=== PATIENT | male | born 1970 | race Hispanic/Latino ===

== ENCOUNTER 2018-05-09 09:28 | Emergency (ER) | payer OTHER ==
[~2018-05-09] VITALS: Ht 165.1 cm; Wt 86.2 kg
--- OUTSIDE RECORDS SUMMARY | 2018-05-09 09:32 | XMS REPORT ---
Author Author [facility] Address Unknown Phone Unavailable Care Team Providers Care Nnp Name Role Phone TREVON BELCHER Unavailable Unavailable Problems This patient has no known problems. Allergies, Adverse Reactions, Alerts This patient has no known allergies or adverse reactions. Medications This patient has no known medications. Results Test Description Test Time Test Comments Text Results Atomic Results Result Comments CREATINE KINASE (CK), TOTAL AND MB 2017-08-30 19:21:00 CREATINE KINASE TOTAL (BEAKER) (test wqku=693) 67 U/L 29-200 CREATINE KINASE-MB (BEAKER) (test vjib=407) 0.6 ng/mL 0.0-6.6 CREATINE KINASE-MB INDEX (BEAKER) (test maqf=811) 0.9 % CK-MB Reference Range:<6.7 Normal6.7-10.0 Borderline>10.0 Abnormal TROPONIN [id number] 19:21:00* Test Item Value Reference Range Comments TROPONIN I (BEAKER) (test vrzu=399) < ng/mL 0.00-0.03 Troponin I (TnI) levels must be interpreted in the context of the presenting sym ptoms and the clinical findings. Elevated TnI levels indicate myocardial damage, but are not specific for ischemic heart disease. Elevated TnI levels are seen in patients with other cardiac conditions (including myocarditis and congestive h eart failure), and slight TnI elevations occur in patients with other conditions , including sepsis, renal failure, acidosis, acute neurological disease, and per sistent tachyarrhythmia.[id number] 19:14:00* Test Item Value Reference Range Comments MAGNESIUM (BEAKER) (test vzfg=880) 2.3 mg/dL 1.6-2.6 Specimen slightly hemolyzed BASIC METABOLIC [id number] 19:14:00* Test Item Value Reference Range Comments SODIUM (BEAKER) (test dksm=178) 139 meq/L 136-145 POTASSIUM (BEAKER) (test hobs=726) 4.0 meq/L 3.5-5.1 Specimen slightly hemolyzed CHLORIDE (BEAKER) (test yabn=289) 107 meq/L 98-107 CO2 (BEAKER) (test qxwn=146) 25 meq/L 22-29 BLOOD UREA NITROGEN (BEAKER) (test gkpa=567) 15 mg/dL 7-21 CREATININE (BEAKER) (test ehdx=625) 0.80 mg/dL 0.57-1.25 Specimen slightly hemolyzed GLUCOSE RANDOM (BEAKER) (test awgz=685) 132 mg/dL 70-105 CALCIUM (BEAKER) (test grzi=478) 9.4 mg/dL 8.4-10.2 EGFR (BEAKER) (test sypc=3970) 103 mL/min/1.73 sq m ESTIMATED GFR IS NOT ACCURATE CREATININE CLEARANCE IN PREDICTING GLOMERULAR FILTRATION RATE. ESTIMATED GFR IS NOT APPLICABLE FOR DIALYSIS PATIENTS. PT/[id number] 19:01:00* Test Item Value Reference Range Comments PROTIME (BEAKER) (test tfrr=361) 13.3 seconds 11.7-14.7 INR (BEAKER) (test ztcr=506) 1.0 <=5.9 PARTIAL THROMBOPLASTIN TIME (BEAKER) (test whre=159) 28.5 seconds 22.5-36.0 RECOMMENDED COUMADIN/WARFARIN INR THERAPY RANGESSTANDARD DOSE: 2.0 - 3.0 Inclu lexx: PROPHYLAXIS for venous thrombosis, systemic embolization; TREATMENT for brynn ous thrombosis and/or pulmonary embolus.HIGH RISK: Target INR is 2.5-3.5 for pat ients with mechanical heart valves.CBC W/PLT COUNT & AUTO [id number] 18:45:00* Test Item Value Reference Range Comments WHITE BLOOD CELL COUNT (BEAKER) (test jbuy=241) 5.2 K/ L 3.5-10.5 RED BLOOD CELL COUNT (BEAKER) (test fcui=088) 4.92 M/ L 4.63-6.08 HEMOGLOBIN (BEAKER) (test aoka=901) 15.5 GM/DL 13.7-17.5 HEMATOCRIT (BEAKER) (test wnux=850) 45.8 % 40.1-51.0 MEAN CORPUSCULAR VOLUME (BEAKER) (test ucxw=441) 93.1 fL 79.0-92.2 MEAN CORPUSCULAR HEMOGLOBIN (BEAKER) (test ixdu=112) 31.5 pg 25.7-32.2 MEAN CORPUSCULAR HEMOGLOBIN CONC (BEAKER) (test wdrx=898) 33.8 GM/DL 32.3-36.5 RED CELL DISTRIBUTION WIDTH (BEAKER) (test pmfm=641) 12.2 % 11.6-14.4 PLATELET COUNT (BEAKER) (test ults=149) 166 K/CU MM 150-450 MEAN PLATELET VOLUME (BEAKER) (test llps=749) 10.7 fL 9.4-12.4 NUCLEATED RED BLOOD CELLS (BEAKER) (test svqe=426) 0 /100 WBC 0-0 NEUTROPHILS RELATIVE PERCENT (BEAKER) (test ojgy=364) 60 % LYMPHOCYTES RELATIVE PERCENT (BEAKER) (test hftw=777) 29 % MONOCYTES RELATIVE PERCENT (BEAKER) (test ccys=941) 9 % EOSINOPHILS RELATIVE PERCENT (BEAKER) (test pxzq=314) 2 % BASOPHILS RELATIVE PERCENT (BEAKER) (test kgxo=228) 1 % NEUTROPHILS ABSOLUTE COUNT (BEAKER) (test cipr=283) 3.07 K/ L 1.78-5.38 LYMPHOCYTES ABSOLUTE COUNT (BEAKER) (test qmta=739) 1.49 K/ L 1.32-3.57 MONOCYTES ABSOLUTE COUNT (BEAKER) (test splt=681) 0.46 K/ L 0.30-0.82 EOSINOPHILS ABSOLUTE COUNT (BEAKER) (test hjfc=468) 0.10 K/ L 0.04-0.54 BASOPHILS ABSOLUTE COUNT (BEAKER) (test fefn=356) 0.03 K/ L 0.01-0.08 IMMATURE GRANULOCYTES-RELATIVE PERCENT (BEAKER) (test thmt=6154) 0 % 0-1 RAD, CHEST, 1 VIEW, NON [id number] 18:17:00Reason for exam:->ARM PAINReason for exam:->DIZZINESSFINAL REPORT History: Saphenous and arm pain. Comparison: None. Findings: A single view of the chest is submitted. The cardiomediastinal contours are unremarkable. There is no focal consolidation, pneumothorax, large pleural effusion or evidence of overt pulmonary edema. There is no acute bony abnormality. Impression: No acute abnormality. Signed: Jessee Morales MDReport Verified Date/Time: 08/30/2017 18:17:00 Reading Location: [address] Reading Room ALYSIS W/ [id number] 00:12:00* Test Item Value Reference Range Comments COLOR (BEAKER) (test vhfz=106) Yellow CLARITY (BEAKER) (test qjrk=324) Clear SPECIFIC GRAVITY UA (BEAKER) (test xuqj=722) 1.020 1.001-1.035 PH UA (BEAKER) (test gqxg=013) 6.5 5.0-8.0 PROTEIN UA (BEAKER) (test hmra=333) Negative Negative GLUCOSE UA (BEAKER) (test bvny=592) Negative Negative KETONES UA (BEAKER) (test jhxa=385) Negative Negative BILIRUBIN UA (BEAKER) (test hpxu=044) Negative Negative BLOOD UA (BEAKER) (test nqat=362) Trace Negative NITRITE UA (BEAKER) (test alxw=364) Negative Negative LEUKOCYTE ESTERASE UA (BEAKER) (test dibi=101) Negative Negative UROBILINOGEN UA (BEAKER) (test rubd=665) 2.0 mg/dL 0.2-1.0 RBC UA (BEAKER) (test ccfd=615) 1 /HPF WBC UA (BEAKER) (test uhcg=618) 0 /HPF SOURCE(BEAKER) (test xnvu=5384) Urine, Voided [id number] 23:57:00* Test Item Value Reference Range Comments LIPASE (BEAKER) (test vokc=621) 23 U/L 8-78 [id number] 23:57:00* Test Item Value Reference Range Comments AMYLASE (BEAKER) (test xupe=609) 67 U/L 25-125 BASIC METABOLIC [id number] 23:57:00* Test Item Value Reference Range Comments SODIUM (BEAKER) (test afne=302) 139 meq/L 136-145 POTASSIUM (BEAKER) (test xlof=701) 3.9 meq/L 3.5-5.1 CHLORIDE (BEAKER) (test hrxm=412) 106 meq/L 98-107 CO2 (BEAKER) (test leoy=196) 24 meq/L 22-29 BLOOD UREA NITROGEN (BEAKER) (test spqw=854) 23 mg/dL 7-21 CREATININE (BEAKER) (test efeh=363) 1.54 mg/dL 0.57-1.25 GLUCOSE RANDOM (BEAKER) (test olro=333) 118 mg/dL 70-105 CALCIUM (BEAKER) (test viqp=677) 8.6 mg/dL 8.4-10.2 EGFR (BEAKER) (test xgoc=5352) 49 mL/min/1.73 sq m ESTIMATED GFR IS NOT ACCURATE CREATININE CLEARANCE IN PREDICTING GLOMERULAR FILTRATION RATE. ESTIMATED GFR IS NOT APPLICABLE FOR DIALYSIS PATIENTS. HEPATIC FUNCTION [id number] 23:57:00* Test Item Value Reference Range Comments TOTAL PROTEIN (BEAKER) (test mbje=232) 7.1 gm/dL 6.0-8.3 ALBUMIN (BEAKER) (test pdui=7609) 4.2 g/dL 3.5-5.0 BILIRUBIN TOTAL (BEAKER) (test ctcg=752) 0.4 mg/dL 0.2-1.2 BILIRUBIN DIRECT (BEAKER) (test giwi=062) 0.1 mg/dL 0.1-0.5 ALKALINE PHOSPHATASE (BEAKER) (test rnjl=987) 102 U/L 40-150 AST (SGOT) (BEAKER) (test xwhs=736) 23 U/L 5-34 ALT (SGPT) (BEAKER) (test yqtq=776) 33 U/L 6-55 CBC W/PLT COUNT & AUTO [id number] 23:36:00* Test Item Value Reference Range Comments WHITE BLOOD CELL COUNT (BEAKER) (test tkjl=047) 5.6 K/ L 4.0-10.0 RED BLOOD CELL COUNT (BEAKER) (test zcve=789) 4.69 M/ L 4.20-5.80 HEMOGLOBIN (BEAKER) (test agqs=757) 16.0 GM/DL 13.0-16.8 HEMATOCRIT (BEAKER) (test xlyo=829) 44.7 % 40.0-50.0 MEAN CORPUSCULAR VOLUME (BEAKER) (test zysb=564) 95.4 fL 82.0-98.0 MEAN CORPUSCULAR HEMOGLOBIN (BEAKER) (test xron=935) 34.2 pg 27.0-33.0 MEAN CORPUSCULAR HEMOGLOBIN CONC (BEAKER) (test nejh=531) 35.8 GM/DL 32.0-36.0 RED CELL DISTRIBUTION WIDTH (BEAKER) (test fnng=704) 11.5 % 10.3-14.2 PLATELET COUNT (BEAKER) (test qwsv=093) 162 K/CU MM 150-430 MEAN PLATELET VOLUME (BEAKER) (test gycd=771) 7.5 fL 6.5-10.5 NUCLEATED RED BLOOD CELLS (BEAKER) (test gyev=052) 0 /100 WBC 0-0 NEUTROPHILS RELATIVE PERCENT (BEAKER) (test sbpf=312) 55 % LYMPHOCYTES RELATIVE PERCENT (BEAKER) (test klem=835) 30 % MONOCYTES RELATIVE PERCENT (BEAKER) (test fhui=047) 11 % EOSINOPHILS RELATIVE PERCENT (BEAKER) (test gnzg=740) 4 % BASOPHILS RELATIVE PERCENT (BEAKER) (test tkoh=753) 1 % NEUTROPHILS ABSOLUTE COUNT (BEAKER) (test gqrq=061) 3.07 K/ L 1.80-8.00 LYMPHOCYTES ABSOLUTE COUNT (BEAKER) (test gscg=348) 1.68 K/ L 1.48-4.50 MONOCYTES ABSOLUTE COUNT (BEAKER) (test birs=213) 0.60 K/ L 0.00-1.30 EOSINOPHILS ABSOLUTE COUNT (BEAKER) (test sivq=887) 0.20 K/ L 0.00-0.50 BASOPHILS ABSOLUTE COUNT (BEAKER) (test bivg=085) 0.03 K/ L 0.00-0.20 0.00CD4 T CELL [id number] 12:41:00* Test Item Value Reference Range Comments CD4 T CELL SUBSET RESULT POINTER (BEAKER) (test ogis=2613) See Separate Report FLOW CYTOMETRY AP CASE # (BRAD) (test jwxz=8330) [id number] FLOW [id number] 15:58:00* Test Item Value Reference Range Comments LAB AP CPT CODE (BRAD) (test jndh=7970) [id number] HIV-1 PCR, [id number] 15:37:00* Test Item Value Reference Range Comments HIV-1 RESULT COMPONENT (BEAKER) (test hefd=0154) Less than 20 Cp/mL HIV RNA detected HIV RNA not detected This test uses a Real-Time Polymerase Chain Reaction (RT-PCR) methodology to det ect a highly conserved region of the HIV-1 gag gene and was performed using the MIGUEL AmpliPrep/MIGUEL TaqMan HIV-1 test kit version 2.0 ([employer]Reportable range for this assay is 20 - 10,000,000 copies per mL (1.3 - 7.0 Log copies/mL).COMPREHENSIVE METABOLIC [id number] 06:35:00* Test Item Value Reference Range Comments TOTAL PROTEIN (BEAKER) (test qtmf=786) 6.3 gm/dL 6.0-8.3 ALBUMIN (BEAKER) (test qeos=0857) 3.7 g/dL 3.5-5.0 ALKALINE PHOSPHATASE (BEAKER) (test yram=170) 72 U/L 40-150 BILIRUBIN TOTAL (BEAKER) (test ldfm=189) 0.6 mg/dL 0.2-1.2 SODIUM (BEAKER) (test ytze=094) 139 meq/L 136-145 POTASSIUM (BEAKER) (test dzam=092) 3.7 meq/L 3.5-5.1 CHLORIDE (BEAKER) (test nhuw=211) 107 meq/L 98-107 CO2 (BEAKER) (test bllc=112) 25 meq/L 22-29 BLOOD UREA NITROGEN (BEAKER) (test kape=503) 13 mg/dL 7-21 CREATININE (BEAKER) (test mjzg=956) 0.80 mg/dL 0.57-1.25 GLUCOSE RANDOM (BEAKER) (test rxdj=206) 102 mg/dL 70-105 CALCIUM (BEAKER) (test chao=103) 8.2 mg/dL 8.4-10.2 AST (SGOT) (BEAKER) (test lxsu=404) 17 U/L 5-34 ALT (SGPT) (BEAKER) (test nnvj=492) 27 U/L 6-55 EGFR (BEAKER) (test xuip=3246) 104 mL/min/1.73 sq m ESTIMATED GFR IS NOT ACCURATE CREATININE CLEARANCE IN PREDICTING GLOMERULAR FILTRATION RATE. ESTIMATED GFR IS NOT APPLICABLE FOR DIALYSIS PATIENTS. CBC W/PLT COUNT & AUTO [id number] 06:24:00* Test Item Value Reference Range Comments WHITE BLOOD CELL COUNT (BEAKER) (test ktfc=578) 6.1 K/ L 4.0-10.0 RED BLOOD CELL COUNT (BEAKER) (test xcbd=045) 4.85 M/ L 4.20-5.80 HEMOGLOBIN (BEAKER) (test azgf=701) 15.8 GM/DL 13.0-16.8 HEMATOCRIT (BEAKER) (test incd=943) 46.4 % 40.0-50.0 MEAN CORPUSCULAR VOLUME (BEAKER) (test xisx=420) 95.8 fL 82.0-98.0 MEAN CORPUSCULAR HEMOGLOBIN (BEAKER) (test xuet=333) 32.7 pg 27.0-33.0 MEAN CORPUSCULAR HEMOGLOBIN CONC (BEAKER) (test fjhl=505) 34.1 GM/DL 32.0-36.0 RED CELL DISTRIBUTION WIDTH (BEAKER) (test nrsc=702) 12.2 % 10.3-14.2 PLATELET COUNT (BEAKER) (test ajsz=176) 126 K/CU MM 150-430 MEAN PLATELET VOLUME (BEAKER) (test rufl=085) 8.1 fL 6.5-10.5 NUCLEATED RED BLOOD CELLS (BEAKER) (test tmnr=511) 0 /100 WBC 0-0 NEUTROPHILS RELATIVE PERCENT (BEAKER) (test twjm=661) 72 % LYMPHOCYTES RELATIVE PERCENT (BEAKER) (test yvyb=668) 18 % MONOCYTES RELATIVE PERCENT (BEAKER) (test xtty=453) 8 % EOSINOPHILS RELATIVE PERCENT (BEAKER) (test dkba=994) 2 % BASOPHILS RELATIVE PERCENT (BEAKER) (test xrls=778) 1 % NEUTROPHILS ABSOLUTE COUNT (BEAKER) (test xlur=411) 4.34 K/ L 1.80-8.00 LYMPHOCYTES ABSOLUTE COUNT (BEAKER) (test rywz=659) 1.11 K/ L 1.48-4.50 MONOCYTES ABSOLUTE COUNT (BEAKER) (test tkqh=370) 0.46 K/ L 0.00-1.30 EOSINOPHILS ABSOLUTE COUNT (BEAKER) (test wcrc=416) 0.10 K/ L 0.00-0.50 BASOPHILS ABSOLUTE COUNT (BEAKER) (test btzz=355) 0.04 K/ L 0.00-0.20 0.00HEMOGLOBIN AND [id number] 01:02:00* Test Item Value Reference Range Comments HEMOGLOBIN (BEAKER) (test gznp=511) 15.8 GM/DL 13.0-16.8 HEMATOCRIT (BEAKER) (test zmku=541) 45.1 % 40.0-50.0 HEMOGLOBIN AND [id number] 18:23:00* Test Item Value Reference Range Comments HEMOGLOBIN (BEAKER) (test bkwr=495) 15.9 GM/DL 13.0-16.8 HEMATOCRIT (BEAKER) (test fnko=286) 46.4 % 40.0-50.0 [id number] 07:14:00* Test Item Value Reference Range Comments MAGNESIUM (BEAKER) (test azqx=001) 2.4 mg/dL 1.6-2.6 COMPREHENSIVE METABOLIC [id number] 06:57:00* Test Item Value Reference Range Comments TOTAL PROTEIN (BEAKER) (test epdd=756) 6.3 gm/dL 6.0-8.3 ALBUMIN (BEAKER) (test zzog=5703) 3.8 g/dL 3.5-5.0 ALKALINE PHOSPHATASE (BEAKER) (test gzdl=520) 70 U/L 40-150 BILIRUBIN TOTAL (BEAKER) (test wbvf=874) 0.9 mg/dL 0.2-1.2 SODIUM (BEAKER) (test mkaa=745) 139 meq/L 136-145 POTASSIUM (BEAKER) (test tvhi=950) 4.1 meq/L 3.5-5.1 CHLORIDE (BEAKER) (test hyhp=315) 107 meq/L 98-107 CO2 (BEAKER) (test augt=967) 23 meq/L 22-29 BLOOD UREA NITROGEN (BEAKER) (test lryc=691) 9 mg/dL 7-21 CREATININE (BEAKER) (test rbze=033) 0.81 mg/dL 0.57-1.25 GLUCOSE RANDOM (BEAKER) (test ofyx=483) 105 mg/dL 70-105 CALCIUM (BEAKER) (test keqz=468) 8.5 mg/dL 8.4-10.2 AST (SGOT) (BEAKER) (test hfxy=507) 22 U/L 5-34 ALT (SGPT) (BEAKER) (test hogr=621) 29 U/L 6-55 EGFR (BEAKER) (test vawk=8565) 102 mL/min/1.73 sq m ESTIMATED GFR IS NOT ACCURATE CREATININE CLEARANCE IN PREDICTING GLOMERULAR FILTRATION RATE. ESTIMATED GFR IS NOT APPLICABLE FOR DIALYSIS PATIENTS. [id number] 06:43:00* Test Item Value Reference Range Comments PHOSPHORUS (BEAKER) (test ukbr=372) 2.9 mg/dL 2.3-4.7 HEMOGLOBIN AND [id number] 06:33:00* Test Item Value Reference Range Comments HEMOGLOBIN (BEAKER) (test keco=312) 16.3 GM/DL 13.0-16.8 HEMATOCRIT (BEAKER) (test xgxc=882) 47.4 % 40.0-50.0 CBC W/PLT COUNT & AUTO [id number] 06:33:00* Test Item Value Reference Range Comments WHITE BLOOD CELL COUNT (BEAKER) (test yfzk=545) 5.3 K/ L 4.0-10.0 RED BLOOD CELL COUNT (BEAKER) (test ctnh=900) 4.92 M/ L 4.20-5.80 HEMOGLOBIN (BEAKER) (test japm=389) 16.3 GM/DL 13.0-16.8 HEMATOCRIT (BEAKER) (test jrah=489) 47.4 % 40.0-50.0 MEAN CORPUSCULAR VOLUME (BEAKER) (test yqkr=483) 96.3 fL 82.0-98.0 MEAN CORPUSCULAR HEMOGLOBIN (BEAKER) (test qwgw=535) 33.1 pg 27.0-33.0 MEAN CORPUSCULAR HEMOGLOBIN CONC (BEAKER) (test jmjk=739) 34.4 GM/DL 32.0-36.0 RED CELL DISTRIBUTION WIDTH (BEAKER) (test nxxn=407) 12.3 % 10.3-14.2 PLATELET COUNT (BEAKER) (test lokh=113) 129 K/CU MM 150-430 MEAN PLATELET VOLUME (BEAKER) (test eygq=259) 7.7 fL 6.5-10.5 NUCLEATED RED BLOOD CELLS (BEAKER) (test avrk=748) 0 /100 WBC 0-0 NEUTROPHILS RELATIVE PERCENT (BEAKER) (test dbbt=650) 64 % LYMPHOCYTES RELATIVE PERCENT (BEAKER) (test nvdf=219) 24 % MONOCYTES RELATIVE PERCENT (BEAKER) (test aimi=038) 9 % EOSINOPHILS RELATIVE PERCENT (BEAKER) (test nyut=208) 2 % BASOPHILS RELATIVE PERCENT (BEAKER) (test hkzv=599) 0 % NEUTROPHILS ABSOLUTE COUNT (BEAKER) (test qkec=374) 3.37 K/ L 1.80-8.00 LYMPHOCYTES ABSOLUTE COUNT (BEAKER) (test weka=758) 1.26 K/ L 1.48-4.50 MONOCYTES ABSOLUTE COUNT (BEAKER) (test lmwo=260) 0.50 K/ L 0.00-1.30 EOSINOPHILS ABSOLUTE COUNT (BEAKER) (test iokh=537) 0.12 K/ L 0.00-0.50 BASOPHILS ABSOLUTE COUNT (BEAKER) (test omce=170) 0.01 K/ L 0.00-0.20 HEMOGLOBIN AND [id number] 00:29:00* Test Item Value Reference Range Comments HEMOGLOBIN (BEAKER) (test xhju=150) 15.9 GM/DL 13.0-16.8 HEMATOCRIT (BEAKER) (test qyah=208) 48.1 % 40.0-50.0 HEMOGLOBIN AND [id number] 17:31:00* Test Item Value Reference Range Comments HEMOGLOBIN (BEAKER) (test imtn=860) 16.6 GM/DL 13.0-16.8 HEMATOCRIT (BEAKER) (test eglr=854) 50.1 % 40.0-50.0 HEMOGLOBIN AND [id number] 17:31:00* Test Item Value Reference Range Comments HEMOGLOBIN (BEAKER) (test tgvi=364) 15.5 GM/DL 13.0-16.8 HEMATOCRIT (BEAKER) (test aouk=190) 44.6 % 40.0-50.0 [id number] 10:20:00* Test Item Value Reference Range Comments PROTIME (BEAKER) (test yuxb=630) 14.8 seconds 11.7-14.7 INR (BEAKER) (test mgux=429) 1.2 <=5.9 PARTIAL THROMBOPLASTIN TIME (BEAKER) (test mvnf=158) 29.2 seconds 22.5-36.0 RECOMMENDED COUMADIN/WARFARIN INR THERAPY RANGESSTANDARD DOSE: 2.0 - 3.0 Inclu lexx: PROPHYLAXIS for venous thrombosis, systemic embolization; TREATMENT for brynn ous thrombosis and/or pulmonary embolus.HIGH RISK: Target INR is 2.5-3.5 for pat ients with mechanical heart valves.BASIC METABOLIC [id number] 10:14:00* Test Item Value Reference Range Comments SODIUM (BEAKER) (test azue=420) 137 meq/L 136-145 POTASSIUM (BEAKER) (test tutc=395) 4.0 meq/L 3.5-5.1 CHLORIDE (BEAKER) (test uxod=417) 101 meq/L 98-107 CO2 (BEAKER) (test bxnl=009) 29 meq/L 22-29 BLOOD UREA NITROGEN (BEAKER) (test rimp=847) 15 mg/dL 7-21 CREATININE (BEAKER) (test pytc=099) 0.87 mg/dL 0.57-1.25 GLUCOSE RANDOM (BEAKER) (test pfox=799) 103 mg/dL 70-105 CALCIUM (BEAKER) (test iwcd=649) 9.3 mg/dL 8.4-10.2 EGFR (BEAKER) (test vxvh=7835) mL/min/1.73 sq m INSUFFICIENT CLINICAL DATA TO CALCULATE ESTIMATED GFR. [id number] 10:09:00* Test Item Value Reference Range Comments LIPASE (BEAKER) (test dnzl=682) 18 U/L 8-78 [id number] 10:09:00* Test Item Value Reference Range Comments AMYLASE (BEAKER) (test lnxo=340) 70 U/L 25-125 HEPATIC FUNCTION [id number] 10:09:00* Test Item Value Reference Range Comments TOTAL PROTEIN (BEAKER) (test epsw=567) 7.4 gm/dL 6.0-8.3 ALBUMIN (BEAKER) (test yvwe=3091) 4.4 g/dL 3.5-5.0 BILIRUBIN TOTAL (BEAKER) (test zwps=993) 0.8 mg/dL 0.2-1.2 BILIRUBIN DIRECT (BEAKER) (test lghx=233) 0.3 mg/dL 0.1-0.5 ALKALINE PHOSPHATASE (BEAKER) (test awjl=858) 82 U/L 40-150 AST (SGOT) (BEAKER) (test xtqq=772) 22 U/L 5-34 ALT (SGPT) (BEAKER) (test djco=064) 32 U/L 6-55 CBC W/PLT COUNT & AUTO [id number] 09:58:00* Test Item Value Reference Range Comments WHITE BLOOD CELL COUNT (BEAKER) (test ncer=535) 6.5 K/ L 4.0-10.0 RED BLOOD CELL COUNT (BEAKER) (test xiwh=632) 5.37 M/ L 4.20-5.80 HEMOGLOBIN (BEAKER) (test zzah=148) 17.2 GM/DL 13.0-16.8 HEMATOCRIT (BEAKER) (test fwwj=028) 51.3 % 40.0-50.0 MEAN CORPUSCULAR VOLUME (BEAKER) (test fhuo=239) 95.5 fL 82.0-98.0 MEAN CORPUSCULAR HEMOGLOBIN (BEAKER) (test qcmx=290) 32.1 pg 27.0-33.0 MEAN CORPUSCULAR HEMOGLOBIN CONC (BEAKER) (test ovbp=159) 33.6 GM/DL 32.0-36.0 RED CELL DISTRIBUTION WIDTH (BEAKER) (test ujvf=878) 12.2 % 10.3-14.2 PLATELET COUNT (BEAKER) (test qmfk=718) 151 K/CU MM 150-430 MEAN PLATELET VOLUME (BEAKER) (test hjmi=459) 7.6 fL 6.5-10.5 NUCLEATED RED BLOOD CELLS (BEAKER) (test otel=689) 0 /100 WBC 0-0 NEUTROPHILS RELATIVE PERCENT (BEAKER) (test vqvt=648) 71 % LYMPHOCYTES RELATIVE PERCENT (BEAKER) (test dtjn=526) 21 % MONOCYTES RELATIVE PERCENT (BEAKER) (test mvoi=322) 7 % EOSINOPHILS RELATIVE PERCENT (BEAKER) (test rmap=967) 1 % BASOPHILS RELATIVE PERCENT (BEAKER) (test ndoc=420) 0 % NEUTROPHILS ABSOLUTE COUNT (BEAKER) (test hfwh=209) 4.61 K/ L 1.80-8.00 LYMPHOCYTES ABSOLUTE COUNT (BEAKER) (test adlq=871) 1.38 K/ L 1.48-4.50 MONOCYTES ABSOLUTE COUNT (BEAKER) (test xsei=064) 0.44 K/ L 0.00-1.30 EOSINOPHILS ABSOLUTE COUNT (BEAKER) (test ddtu=705) 0.07 K/ L 0.00-0.50 BASOPHILS ABSOLUTE COUNT (BEAKER) (test gbkq=433) 0.01 K/ L 0.00-0.20 0.00
--- OUTSIDE RECORDS SUMMARY | 2018-05-09 09:32 | XMS REPORT | Clinical Summary ---
Author Author DONNIE [facility] Address Unknown Phone Unavailable Care Team Providers Care Tong Hooker Name Role Phone Mary Mi MD PCP Allergies No Known Allergies Medications End Date Status Medication Sig Dispensed Refills Start Date Active emtricitabine-tenofovir Take 1 tablet 0 (TRUVADA) 200-300 by mouth mgIndications: HIV daily infection 200mg/25mg . Active DARUNAVIR/COBICISTAT Take 800 mg 0 (PREZCOBIX ORAL) by mouth daily 800/150mg . Active emtricitabine-tenofovir Take by mouth 0 alafen (DESCOVY) 200-25 daily. mg Tab Active acetaminophen-codeine Take 1-2 20 tablet 0 (TYLENOL #3) 300-30 mg tablets by 8 per tablet mouth every 6 (six) hours as needed for Pain (WARNING CAUSES SEDATION) for up to 20 doses. Max Daily Amount: 8 tablets Active ibuprofen (ADVIL,MOTRIN) Take 1 tablet 20 tablet 0 600 MG tablet (600 mg 8 total) by mouth every 6 (six) hours as needed for Pain for up to 20 doses. 08/17/2017 omeprazole (PRILOSEC) 40 Take 1 60 capsule 1 MG capsule capsule (40 7 mg total) by mouth 2 (two) times daily. Active Problems Problem Noted Date Gastrointestinal hemorrhage, unspecified gastrointestinal hemorrhage type 08/15/2016 HIV (human immunodeficiency virus infection) 08/15/2016 BRBPR (bright red blood per rectum) 08/15/2016 Hypertension Encounters Care Team Description Date Type Specialty Miko Ogden MD Atypical chest pain (Primary Dx); Right arm pain; Upper back pain on right side; Dizziness; Muscle spasm 08/30/2017 Emergency Emergency Medicine 08/30/2017 Orders Only General Internal Medicine after 05/08/2017 Social History Date Tobacco Use Types Packs/Day Years Used Never Smoker Smokeless Tobacco: Never Used Alcohol Use Drinks/Week oz/Week Comments Yes socially Sex Assigned at Date Recorded Not on file Industry Job Start Date Occupation Not on file Not on file Not on file Travel End Travel History Travel Start No recent travel history available. Last Filed Vital Signs Time Taken Vital Sign Reading 08/30/2017 10:20 PM CDT Blood Pressure 130/71 08/30/2017 10:20 PM CDT Pulse 74 08/30/2017 10:20 PM CDT Temperature 36.8 C (98.2 F) 08/30/2017 10:20 PM CDT Respiratory Rate 18 08/30/2017 8:01 PM CDT Oxygen Saturation 95% - Inhaled Oxygen - Concentration 08/30/2017 6:04 PM CDT Weight 81.6 kg (180 lb) 08/30/2017 6:04 PM CDT Height 172.7 cm (5' 8") 08/30/2017 6:04 PM CDT Body Mass Index 27.37 Plan of Treatment Not on file Procedures Comments Procedure Name Priority Date/Time Associated Diagnosis CBC W/PLT COUNT & AUTO STAT 08/30/2017 DIFFERENTIAL 6:34 PM CDT CREATINE KINASE (CK), STAT 08/30/2017 TOTAL AND MB 6:34 PM CDT PT/APTT STAT 08/30/2017 6:34 PM CDT CBC W/PLT COUNT & AUTO STAT 08/30/2017 DIFFERENTIAL 6:34 PM CDT TROPONIN I STAT 08/30/2017 6:34 PM CDT MAGNESIUM STAT 08/30/2017 6:34 PM CDT BASIC METABOLIC PANEL (7) STAT 08/30/2017 6:34 PM CDT XR CHEST 1 VIEW STAT 08/30/2017 PORTABLE/BEDSIDE 6:13 PM CDT ECG 12-LEAD STAT 08/30/2017 6:00 PM CDT after 05/08/2017 Results * PT/PTT (08/30/2017 6:34 PM CDT) Protime 13.3 11.7 - 14.7 seconds [facility] INR 1.0 <=5.9 [facility] PTT 28.5 22.5 - 36.0 seconds [facility] Specimen Blood - Arm, Left Narrative Performed At RECOMMENDED COUMADIN/WARFARIN INR THERAPY RANGES [facility] STANDARD DOSE: 2.0 - 3.0 Includes: PROPHYLAXIS for venous thrombosis, [facility] systemic embolization; TREATMENT for venous thrombosis and/or pulmonary embolus. HIGH RISK: Target INR is 2.5-3.5 for patients with mechanical heart valves. Performing Organization Address City/State/Zipcode Phone Number [facility] [address] [place] [address] MEDICAL [facility]ENTER * CBC with platelet count + automated diff (08/30/2017 6:34 PM CDT) WBC 5.2 3.5 - 10.5 K/L [facility] RBC 4.92 4.63 - 6.08 M/L [facility] Hemoglobin 15.5 13.7 - 17.5 GM/DL [facility] Hematocrit 45.8 40.1 - 51.0 % [facility] MCV 93.1 (H) 79.0 - 92.2 fL [facility] MCH 31.5 25.7 - 32.2 pg [facility] MCHC 33.8 32.3 - 36.5 GM/DL [facility] RDW 12.2 11.6 - 14.4 % [facility] Platelets 166 150 - 450 K/CU MM [facility] MPV 10.7 9.4 - 12.4 fL [facility] nRBC 0 0 - 0 /100 WBC [facility] % Neutros 60 % [facility] % Lymphs 29 % [facility] % Monos 9 % [facility] % Eos 2 % [facility] % Baso 1 % [facility] # Neutros 3.07 1.78 - 5.38 K/L [facility] # Lymphs 1.49 1.32 - 3.57 K/L [facility] # Monos 0.46 0.30 - 0.82 K/L [facility] # Eos 0.10 0.04 - 0.54 K/L [facility] # Baso 0.03 0.01 - 0.08 K/L [facility] Immature 0 0 - 1 % [facility] Granulocytes-[facility] Specimen Blood - Arm, Left Performing Organization Address City/[facility]/Rustcode Phone Number [facility] [address] [place] [phone] [facility] * Troponin I (08/30/2017 6:34 PM CDT) Troponin I <0.01 0.00 - 0.03 ng/mL [facility] Specimen Blood - Arm, Left Narrative Performed At Troponin I (TnI) levels must be interpreted in the context of the presenting [facility] symptoms and the clinical findings. Elevated TnI levels indicate myocardial [facility] damage, but are not specific for ischemic heart disease. Elevated TnI levels are seen in patients with other cardiac conditions (including myocarditis and congestive heart failure), and slight TnI elevations occur in patients with other conditions, including sepsis, renal failure, acidosis, acute neurological disease, and persistent tachyarrhythmia. Performing Organization Address City/[facility]/Zipcode Phone Number [facility] [address] [place] [address] [facility] * Magnesium (08/30/2017 6:34 PM CDT) Magnesium 2.3Comment: Specimen slightly 1.6 - 2.6 mg/dL [facility] Specimen Blood - Arm, Left Performing Organization Address [facility]/[employer] Phone Number [facility] [address] [place] [address] [facility] * Creatine Kinase (CK), Total and MB (not available at [facility]) (08/30/2017 6:34 PM CDT) Total CK 67 29 - 200 U/L [facility] CK-MB 0.6 0.0 - 6.6 ng/mL [facility] MB Relative Index 0.9 % [facility] Specimen Blood - Arm, Left Narrative Performed At CK-MB Reference Range: [facility] <6.7Normal [facility] 6.7-10.0Borderline >10.0 Abnormal Performing Organization Address City/[facility]/Rustcode Phone Number [facility] [address] [place] [address] [facility] * Basic Metabolic Panel (08/30/2017 6:34 PM CDT) Sodium 139 136 - 145 meq/L [facility] Potassium 4.0Comment: Specimen slightly 3.5 - 5.1 meq/L [facility] Chloride 107 98 - 107 meq/L [facility] CO2 25 22 - 29 meq/L [facility] BUN 15 7 - 21 mg/dL [facility] Creatinine 0.80Comment: Specimen slightly 0.57 - 1.25 mg/dL [facility] Glucose 132 (H) 70 - 105 mg/dL [facility] Calcium 9.4 8.4 - 10.2 mg/dL [facility] EGFR 103Comment: ESTIMATED GFR IS mL/min/1.73 sq m [facility] NOT ACCURATE CREATININE [facility] CLEARANCE IN PREDICTING GLOMERULAR FILTRATION RATE. ESTIMATED GFR IS NOT APPLICABLE FOR DIALYSIS PATIENTS. Specimen Blood - Arm, Left Performing Organization Address City/[facility]/Zipcode Phone Number [facility] [address] [place] [address] MEDICAL CENTER * XR chest 1 view portable / bedside (08/30/2017 6:13 PM CDT) Narrative Performed At FINAL REPORT [facility]ail[facility] History: Saphenous and arm pain. Comparison: None. Findings: A single view of the chest is submitted. The cardiomediastinal contours are unremarkable. There is no focal consolidation, pneumothorax, large pleural effusion or evidence of overt pulmonary edema. There is no acute bony abnormality. Impression: No acute abnormality. Signed: Jessee Rosario MD Report Verified Date/Time:08/30/2017 18:17:00 Reading Location: [address] Reading Room Procedure Note Interface, External Ris In - 08/30/2017 6:19 PM CDT FINAL REPORT History: Saphenous and arm pain. Comparison: None. Findings: A single view of the chest is submitted. The cardiomediastinal contours are unremarkable. There is no focal consolidation, pneumothorax, large pleural effusion or evidence of overt pulmonary edema. There is no acute bony abnormality. Impression: No acute abnormality. Signed: Jessee Rosario MD Report Verified Date/Time: 08/30/2017 18:17:00 Reading Location: [address] Reading Room Performing Organization Address City/[facility]/[place]ust[place] Phone Number [facility]IS * ECG 12 lead (08/30/2017 6:00 PM CDT) Narrative Performed At Ventricular Rate 82 BPM GE MUSE Atrial Rate 82 BPM P-R Interval 144 ms QRS Duration 100 ms Q-T Interval 356 ms QTC Calculation(Bazett) 415 ms P [place] 44 degrees R [place] 46 degrees T [place] -5 degrees Normal sinus rhythm Minimal voltage criteria for LVH, may be normal variant Possible Inferior infarct (cited on or before 28-NOV-2016) Abnormal ECG When compared with ECG of 28-NOV-2016 23:20, No significant change was found Confirmed by Wendy GUERRERO MICHAEL ([id number]) on 08/31/2017 7:46:49 AM Procedure Note Interface, External Ris In - 08/31/2017 7:46 AM CDT Ventricular Rate 82 BPM Atrial Rate 82 BPM P-R Interval 144 ms QRS Duration 100 ms Q-T Interval 356 ms QTC Calculation(Bazett) 415 ms P [place] 44 degrees R [place] 46 degrees T [place] -5 degrees Normal sinus rhythm Minimal voltage criteria for LVH, may be normal variant Possible Inferior infarct (cited on or before 28-NOV-2016) Abnormal ECG When compared with ECG of 28-NOV-2016 23:20, No significant change was found Confirmed by Wendy GUERRERO MICHAEL ([id number]) on 08/31/2017 7:46:49 AM Performing Organization Address City/State/Zipcode Phone Number GE MUSE after 05/08/2017 Insurance Payer Benefit Subscriber ID Type Phone Address Plan / Group AETNA - [employer] CARE AETNA xxxxxxxxxx [employer] PPO Advance Directives For more information, please contact: [facility] [address] [place] [address] Date Inactivated Comments Code Status Date Activated 08/18/2016 3:59 AM Full Code 08/15/2016 12:18 PM This code status was determined by: Patient
--- OUTSIDE RECORDS SUMMARY | 2018-05-09 09:32 | XMS REPORT | Clinical Summary ---
Author Author [facility] Address Unknown Phone Unavailable Care Team Providers Care Aerial Tram Operator Name Role Phone Alexander Miller MD PCP Allergies No Known Allergies Medications End Date Status Medication Sig Dispensed Refills Start Date Active acetaminophen-codeine 0 (TYLENOL WITH CODEINE #3) 7 300-30 mg per tablet Active amoxicillin (AMOXIL) 500 0 MG capsule 7 Active chlorhexidine (PERIDEX) 0 0.12 % solution 7 Active DESCOVY 200-25 mg tablet 0 7 Active PROCTOZONE-HC 2.5 % 0 rectal cream 7 Active Problems Problem Noted Date Other depressive disorder 12/03/2016 Contact dermatitis and other eczema 12/03/2016 Human immunodeficiency virus (HIV) disease 12/03/2016 Hypertension 12/03/2016 BRBPR (bright red blood per rectum) 08/15/2016 Gastrointestinal hemorrhage 08/15/2016 HIV (human immunodeficiency virus infection) 08/15/2016 History of disease of blood and blood-forming organs 12/26/2015 Sebaceous cyst 12/26/2015 Overweight 11/09/2014 Pain in joint, shoulder region 11/09/2014 Routine general medical examination at a health care facility 08/24/2013 Cystitis 09/24/2012 Pain in soft tissues of limb 09/06/2012 Social History Date Tobacco Use Types Packs/Day Years Used Never Smoker Alcohol Use Drinks/Week oz/Week Comments Yes 1 Cans of 0.6 beer Sex Assigned at Date Recorded Not on file Industry Job Start Date Occupation Not on file Not on file Not on file Travel End Travel History Travel Start No recent travel history available. Last Filed Vital Signs Not on file Plan of Treatment Health Maintenance Due Date Last Done Comments INFLUENZA VACCINE 12/09/2017 Results Not on fileafter 05/08/2017 Insurance Payer Benefit Subscriber ID Type Phone Address Plan / Group BCBS BCBS xxxxxxxxxxxx PPO CHOICE PPO/ROSIBEL CLAROS PPO Advance Directives Patient has advance care planning documents on file. For more information, mirian phelan contact: Ed Castro [address] [place] [address]
--- OUTSIDE RECORDS SUMMARY | 2018-05-09 09:32 | XMS REPORT ---
Author Author Admin, [place] Organization [facility] Adult Medicine Address [address] [place] [address] Phone Allergies, Adverse Reactions, Alerts Allergy Name Reaction Description Start Date Severity Status Provider No Known Allergies Linh Guerin JUNIOR SALES REPRESENTATIVE Conditions or Problems Problem Name Problem Code Onset Date Status Entry Date Provider Comment Standard Description Annotate Dental caries 521.00 Active Crystal Torres TECHNOLOGY ADMINISTRATOR Dental caries, unspecified Screening for venereal disease V74.5 Active Crystal STEWARTP Screening examination for venereal disease Hypertension 401.9 Active Crystal Torres TECHNOLOGY ADMINISTRATOR Unspecified essential hypertension Immunization update V15.9 Active Crystal Torres TECHNOLOGY ADMINISTRATOR Unspecified personal history presenting hazards to health Hx of lipid disorder V12.3 Active Mary Mi MD Personal history of diseases of blood and blood-forming organs Overweight 278.02 Active Hero Zarco TECHNOLOGY ADMINISTRATOR Overweight Shoulder pain, right 719.41 Active Hero Zarco TECHNOLOGY ADMINISTRATOR Pain in joint involving shoulder region PREVENTIVE HEALTH CARE V70.0 Active Hero STEWARTP Routine general medical examination at a health care facility FOOT PAIN, RIGHT 729.5 Active Ana Maria Devries MD Pain in limb DEPRESSION 311 Active Crystal Mccormick RN Depressive disorder, not elsewhere classified HIV INFECTION 042 Active Crystal Mccormick RN Human immunodeficiency virus [HIV] disease Hyperlipidemia 272.4 Inactive Mary Mi MD Other and unspecified hyperlipidemia Sebaceous cyst ICD-706.2 Inactive Crystal STEWARTP CYSTITIS ICD-595.9 Inactive Crystal STEWARTP ECZEMA ICD-692.9 Inactive Crystal STEWARTP Sebaceous cyst 706.2 Resolved Crystal STEWARTP Sebaceous cyst CYSTITIS 595.9 Resolved Crystal STEWARTP Cystitis, unspecified ECZEMA 692.9 10/09/10 Resolved Crystal ROJAS Contact dermatitis and other eczema, unspecified cause Scalp Medication List Medication Instructions Start Date Stop Date Generic Name NDC Status Provider Patient Instruction AMITRIPTYLINE HCL 25 MG ORAL TABLET 1 by mouth nightly at bedtime AMITRIPTYLINE HCL 69399286959 Active Crystal STEWARTP Active AMLODIPINE BESYLATE 5 MG ORAL TABLET 1 tab by mouth daily AMLODIPINE BESYLATE 21332544449 Active Crystal ROJAS Active SYMTUZA 595-034-791-10 MG ORAL TABLET 1 tab By Mouth Every Day RCSBS-SQDHA-BUJOSZUA-TENOFAF 75409056320 Active Crystal ROJAS Active ULTRAM 50 MG ORAL TABLET 1 by mouth every 12 hours as needed pain (30 day supply) ULTRAM 50 MG ORAL TABLET 596954 TRAMADOL HCL Inactive CELEXA 20 MG ORAL TABLET 1 By Mouth Every Day CELEXA 20 MG ORAL TABLET 897133 CITALOPRAM HYDROBROMIDE Inactive DESCOVY 200-25 MG ORAL TABLET 1 By Mouth Every Day DESCOVY 200-25 MG ORAL TABLET EMTRICITABINE-TENOFOVIR AF Inactive TRUVADA 200-300 MG ORAL TABLET 1 By Mouth Every Day TRUVADA 200-300 MG ORAL TABLET EMTRICITABINE-TENOFOVIR Inactive BACTRIM DS 800-160 MG ORAL TABLET 1 tab by mouth ONCE A DAY BACTRIM DS 800-160 MG ORAL TABLET 318381 SULFAMETHOXAZOLE-TRIMETHOPRIM Inactive CIPRO 500 MG ORAL TABLET 1 by mouth twice a day CIPRO 500 MG ORAL TABLET 327609 CIPROFLOXACIN HCL Inactive IBUPROFEN 400 MG ORAL TABLET 1 by mouth every 8 hours as needed IBUPROFEN 400 MG ORAL TABLET 975473 IBUPROFEN Inactive KALETRA 200-50 MG ORAL TABLET 2 By Mouth Twice a Day KALETRA 200- 50 MG ORAL TABLET Lopinavir-Ritonavir Inactive PREZCOBIX 800-150 MG ORAL TABLET 1 By Mouth Every Day DARUNAVIR-COBICISTAT 19163082905 No Longer Active Crystal Torres TECHNOLOGY ADMINISTRATOR Active MOBIC 15 MG ORAL TABLET 1 by mouth daily MELOXICAM 53206017068 No Longer Active Hero Zarco TECHNOLOGY ADMINISTRATOR Active ULTRAM 50 MG ORAL TABLET 1 by mouth every 12 hours as needed pain (30 day supply) TRAMADOL HCL 38350230427 No Longer Active Mary Mi MD Active CELEXA 20 MG ORAL TABLET 1 By Mouth Every Day CITALOPRAM HYDROBROMIDE 32060314047 No Longer Active Mary Mi MD Active DESCOVY 200-25 MG ORAL TABLET 1 By Mouth Every Day EMTRICITABINE- TENOFOVIR AF 69032778572 No Longer Active Crystal Torres TECHNOLOGY ADMINISTRATOR Active NORVIR 100 MG ORAL TABLET 1 By Mouth Every Day RITONAVIR 04447098592 No Longer Active Parvin Neal Active PREZISTA 800 MG ORAL TABLET 1 By Mouth Every Day with food DARUNAVIR ETHANOLATE 91943351840 No Longer Active Parvin Neal Active TRUVADA 200-300 MG ORAL TABLET 1 By Mouth Every Day EMTRICITABINE-TENOFOVIR 19298188696 No Longer Active Mary Mi MD Active BACTRIM DS 800-160 MG ORAL TABLET 1 tab by mouth ONCE A DAY SULFAMETHOXAZOLE-TRIMETHOPRIM 86429916647 No Longer Active Crystal Torres TECHNOLOGY ADMINISTRATOR Active CIPRO 500 MG ORAL TABLET 1 by mouth twice a day CIPROFLOXACIN HCL 46749469175 No Longer Active Mary Mi MD Active IBUPROFEN 400 MG ORAL TABLET 1 by mouth every 8 hours as needed IBUPROFEN 01635784374 No Longer Active Mary Mi MD Active KALETRA 200-50 MG ORAL TABLET 2 By Mouth Twice a Day Lopinavir-Ritonavir 20958642017 No Longer Active Mallika Zaman Active Advance Directives Directive Description Start Date DISCUSSED - NO DECISION MADE Immunizations Vaccine Administration Date Value Standard Description influenza immunization (Flu Vax) has been administered given influenza virus vaccine, unspecified formulation pneumococcal immunization administered given pneumococcal polysaccharide vaccine, 23 valent Tetanus toxoid, reduced diphtheria toxoid and acellular Pertussis vaccine, absorbed (TdaP) given given tetanus toxoid, reduced diphtheria toxoid, and acellular pertussis vaccine, adsorbed PEDIATRIC PNEUMOCOCCAL VACCINE ([id number]) #1 given pneumococcal conjugate vaccine, 13 valent influenza immunization (Flu Vax) has been administered given influenza virus vaccine, unspecified formulation influenza immunization (Flu Vax) has been administered given influenza virus vaccine, unspecified formulation influenza immunization (Flu Vax) has been administered given influenza virus vaccine, unspecified formulation Vital Signs Date Name Value Unit Range Description blood pressure, diastolic - 8462-4 86 mm[Hg] BP wilson blood pressure, systolic - 8480-6 133 mm[Hg] BP sys height E&M - 8302-2 68 [in_us] Bdy height pulse rate E&M - 8867-4 79 /min Heart rate respiratory rate E&M - 9279-1 16 /min Resp rate temperature E&M 98.0 [degF] Body temperature weight E&M - 3141-9 190 [lb_av] Weight Measured blood pressure, diastolic - 8462-4 81 mm[Hg] BP wilson blood pressure, systolic - 8480-6 129 mm[Hg] BP sys height E&M - 8302-2 68 [in_us] Bdy height pulse rate E&M - 8867-4 70 /min Heart rate temperature E&M 97.2 [degF] Body temperature weight E&M - 3141-9 192.60 [lb_av] Weight Measured blood pressure, diastolic - 8462-4 91 mm[Hg] BP wilson blood pressure, systolic - 8480-6 150 mm[Hg] BP sys height E&M - 8302-2 68 [in_us] Bdy height pulse rate E&M - 8867-4 95 /min Heart rate temperature E&M 97.8 [degF] Body temperature weight E&M - 3141-9 191 [lb_av] Weight Measured Diagnostic Results Date Name Value Unit Range Description Lab Report: URINALYSIS, COMPLETE, CULTURE, URINE, ROUTINE - Urinalysis WBC urine on microscopy NONE SEEN /HPF {Cells}/[HPF] < OR=5 Lab Report: CD4/CD8 Ratio Profile, Comp. Metabolic Panel (14), Lipid Garnett ... - Hematology T-helper cells (CD4) to T-suppressor cells (CD8) ratio 46.3 % 12.0-35.5 Lab Report: Testosterone,Free and Total, PSA, Serum (Serial Monitor), He ... - Chemistry testosterone, total 381 ng/dL 348-1197 Lab Report: HIV 1 RNA, QUANTITATIVE REAL TIME PCR - Chemistry HIV-1 RNA (log 10) <1.30 DETECTED Log copies/mL NOT DETECTED Lab Report: LIPID PANEL, STANDARD, COMPREHENSIVE METABOLIC PANEL, LYMPHO ... - Chemistry urea nitrogen, blood 13 mg/dL 7-25 cholesterol/HDL ratio, serum, percent 4.3 (calc) <5.0 Lab Report: LIPID PANEL, STANDARD, COMPREHENSIVE METABOLIC PANEL, LYMPHO ... - Hematology erythrocyte (RBC) count 5.24 MILLION/UL 10*6/mm3 4.20-5.80 Lab Report: URINALYSIS, COMPLETE, CULTURE, URINE, ROUTINE - Urinalysis nitrite, urine, semiquantitative NEGATIVE NEGATIVE urine color YELLOW YELLOW Lab Report: LIPID PANEL, STANDARD, COMPREHENSIVE METABOLIC PANEL, LYMPHO ... - Hematology mean platelet volume 10.9 fL 7.5-12.5 Lab Report: LIPID PANEL, STANDARD, COMPREHENSIVE METABOLIC PANEL, LYMPHO ... - Chemistry urea nitrogen/creatinine ratio, serum NOT APPLICABLE (calc) 6-22 Lab Report: LIPID PANEL, STANDARD, COMPREHENSIVE METABOLIC PANEL, LYMPHO ... - Hematology mean corpuscular volume, RBC 93.5 fL 80.0-100.0 Lab Report: LIPID PANEL, STANDARD, COMPREHENSIVE METABOLIC PANEL, LYMPHO ... - Chemistry HDL cholesterol, serum 40 mg/dL >40 Lab Report: LIPID PANEL, STANDARD, COMPREHENSIVE METABOLIC PANEL, LYMPHO ... - Hematology monocytes as percent of blood leukocytes 7.6 % Lab Report: LIPID PANEL, STANDARD, COMPREHENSIVE METABOLIC PANEL, LYMPHO ... - Chemistry creatinine, serum 0.84 mg/dL 0.60-1.35 Lab Report: URINALYSIS, COMPLETE, CULTURE, URINE, ROUTINE - Urinalysis hyaline casts, urine NONE SEEN /[LPF] NONE SEEN Lab Report: LIPID PANEL, STANDARD, COMPREHENSIVE METABOLIC PANEL, LYMPHO ... - Chemistry bilirubin, serum, total 0.9 mg/dL 0.2-1.2 Lab Report: CD4/CD8 Ratio Profile, Comp. Metabolic Panel (14), Lipid Garnett ... - Hematology Eosinophil Absolute Count 0.1 X10E3/UL 10*3/uL 0.0-0.4 Append: UA - Urinalysis blood in urine (hemoglobin) by dipstick hemolyzed trace Lab Report: LIPID PANEL, STANDARD, COMPREHENSIVE METABOLIC PANEL, LYMPHO ... - Hematology leukocyte count, blood 4.7 THOUSAND/UL 10*3/mm3 3.8-10.8 Lab Report: URINALYSIS, COMPLETE, CULTURE, URINE, ROUTINE - Urinalysis pH, urine, semiquantitative 8.0 5.0-8.0 Lab Report: LIPID PANEL, STANDARD, COMPREHENSIVE METABOLIC PANEL, LYMPHO ... - Chemistry potassium, serum 4.3 mmol/L 3.5-5.3 albumin, serum 4.5 g/dL 3.6-5.1 Lab Report: CD4/CD8 Ratio Profile, Comp. Metabolic Panel (14), Lipid Garnett ... - Hematology lymphocyte count, blood, automated 1.9 X10E3/UL 10*3/mm3 0.7-3.1 Lab Report: CHLAMYDIA/N. GONORRHOEAE RNA, TMA - Microbiology Neisseria gonorrhoeae DNA probe NOT DETECTED NOT DETECTED Lab Report: LIPID PANEL, STANDARD, COMPREHENSIVE METABOLIC PANEL, LYMPHO ... - Chemistry sodium, serum 139 mmol/L 135-146 Lab Report: URINALYSIS, COMPLETE, CULTURE, URINE, ROUTINE - Urinalysis urine culture Multiple organisms present, each less than 10,000 Lab Report: CD4/CD8 Ratio Profile, Comp. Metabolic Panel (14), Lipid Garnett ... - Serology toxoplasma gondii antibody, IgG 201.0 0.0-7.1 Lab Report: LIPID PANEL, STANDARD, COMPREHENSIVE METABOLIC PANEL, LYMPHO ... - Hematology neutrophils as percent of blood leukocytes 61.2 % Lab Report: URINALYSIS, COMPLETE, CULTURE, URINE, ROUTINE - Chemistry occult blood, stool (E&M) NEGATIVE NEGATIVE Lab Report: HIV 1 RNA, QUANTITATIVE REAL TIME PCR - Serology HIV-1RNA, serum, by PCR, quantitative <20 DETECTED copies/mL {Copies}/mL NOT DETECTED Lab Report: GenoSure(R) MG, HIV GenoSure(R) MG - Lab lamivudine, 3TC Resistant Lab Report: URINALYSIS, COMPLETE, CULTURE, URINE, ROUTINE - Chemistry RBC, Urine 0-2 /HPF /[HPF] < OR=2 Lab Report: URINALYSIS, COMPLETE, CULTURE, URINE, ROUTINE - Urinalysis protein, urine, semiquantitative (dipstick) TRACE NEGATIVE Lab Report: LIPID PANEL, COMPREHENSIVE METABOLIC PANEL, LYMPHOCYTE SUBSE ... - Serology rapid plasma reagin antibody, serum NON-REACTIVE NON-REACTIVE Lab Report: LIPID PANEL, STANDARD, COMPREHENSIVE METABOLIC PANEL, LYMPHO ... - Chemistry Absolute Neutrophil count 2876 {Cells}/uL 7755-6653 triglyceride, serum, fasting 113 mg/dL <150 calcium, serum 9.1 mg/dL 8.6-10.3 Lab Report: URINALYSIS, COMPLETE, CULTURE, URINE, ROUTINE - Urinalysis bacteria, urine microscopy NONE SEEN NONE SEEN specific gravity, urine 1.023 1.001-1.035 Lab Report: Amylase, Serum, Lipase, Serum - Chemistry lipase, serum 27 U/L [iU]/L 0-59 Lab Report: LIPID PANEL, STANDARD, COMPREHENSIVE METABOLIC PANEL, LYMPHO ... - Chemistry protein, total, serum 7.0 g/dL 6.1-8.1 alkaline phosphatase, serum 82 U/L 40-115 Lab Report: LIPID PANEL, STANDARD, COMPREHENSIVE METABOLIC PANEL, LYMPHO ... - Hematology T-helper cells (CD4) as percent of blood lymphocytes 13 % 30-61 lymphocytes as percent of blood leukocytes 29.3 % Lab Report: CD4/CD8 Ratio Profile, Comp. Metabolic Panel (14), Lipid Garnett ... - Chemistry hemoglobin A1C, blood, as % of total hemoglobin 5.5 % 4.8-5.6 Lab Report: LIPID PANEL, STANDARD, COMPREHENSIVE METABOLIC PANEL, LYMPHO ... - Hematology eosinophils as percent of blood leukocytes 1.5 % Lab Report: LIPID PANEL, STANDARD, COMPREHENSIVE METABOLIC PANEL, LYMPHO ... - Genetics/fertility eGFR if 120 mL/min/1.73m2 > OR=60 Lab Report: GenoSure(R) MG, HIV GenoSure(R) MG - Lab didanosine, DDI Resistance Possible Lab Report: CD4/CD8 Ratio Profile, Comp. Metabolic Panel (14), Lipid Garnett ... - Chemistry 1,25-calcitrol, serum 52.9 pg/mL 10.0-75.0 globulin, serum 2.3 1.5-4.5 Lab Report: LIPID PANEL, STANDARD, COMPREHENSIVE METABOLIC PANEL, LYMPHO ... - Chemistry Estimated Glomerular Filtration Rate (calc) 104 mL/min/1.73m2 > OR=60 Lab Report: Testosterone,Free and Total, PSA, Serum (Serial Monitor), He ... - Chemistry vitamin D 25-hydroxy, serum 23.0 ng/mL 30.0-100.0 Append: UA - Urinalysis urobilinogen, urine, semiquantitative (dipstick) negative Lab Report: Testosterone,Free and Total, PSA, Serum (Serial Monitor), He ... - Chemistry prostate specific antigen 0.5 ng/mL 0.0-4.0 Lab Report: CD4/CD8 Ratio Profile, Comp. Metabolic Panel (14), Lipid Garnett ... - Chemistry estimated glomerular filtration rate >59 mL/min/1.73 mL/min >59 Lab Report: Amylase, Serum, Lipase, Serum - Chemistry amylase, serum 64 U/L 31-124 Lab Report: CD4/CD8 Ratio Profile, Comp. Metabolic Panel (14), Lipid Garnett ... - Hematology monocyte count, blood, automated 0.4 X10E3/UL 10*3/uL 0.1-0.9 Lab Report: Testosterone,Free and Total, PSA, Serum (Serial Monitor), He ... - Chemistry thyroid stimulating hormone, serum 2.120 u[iU]/mL 0.450-4.500 Lab Report: LIPID PANEL, STANDARD, COMPREHENSIVE METABOLIC PANEL, LYMPHO ... - Chemistry cholesterol, non-HDL, total 131 MG/DL (CALC) mg/dL <130 Lab Report: CD4/CD8 Ratio Profile, Comp. Metabolic Panel (14), Lipid Garnett ... - Chemistry very low density lipoproteins 24 mg/dL 5-40 Lab Report: LIPID PANEL, COMPREHENSIVE METABOLIC PANEL, LYMPHOCYTE SUBSE ... - Chemistry hepatitis B surface antigen NON-REACTIVE NON-REACTIVE Lab Report: LIPID PANEL, STANDARD, COMPREHENSIVE METABOLIC PANEL, LYMPHO ... - Chemistry chloride, serum 103 mmol/L 98-110 Lab Report: GenoSure(R) MG, HIV GenoSure(R) MG - Serology HIV genotype result The HIV-1 GenoSure(R) MG for this specimen has been completed. Lab Report: LIPID PANEL, STANDARD, COMPREHENSIVE METABOLIC PANEL, LYMPHO ... - Chemistry Absolute Eosinophil count 71 {Cells}/uL 15-500 Lab Report: URINALYSIS, COMPLETE, CULTURE, URINE, ROUTINE - Urinalysis leukocyte esterase, urine, by dipstick NEGATIVE NEGATIVE Lab Report: LIPID PANEL, STANDARD, COMPREHENSIVE METABOLIC PANEL, LYMPHO ... - Hematology mean corpuscular hemoglobin concentration, RBC 34.3 G/DL % 32.0-36.0 Lab Report: LIPID PANEL, COMPREHENSIVE METABOLIC PANEL, LYMPHOCYTE SUBSE ... - Serology hepatitis C antibody, serum NON-REACTIVE NON-REACTIVE Lab Report: LIPID PANEL, STANDARD, COMPREHENSIVE METABOLIC PANEL, LYMPHO ... - Chemistry absolute CD8 [phone] Lab Report: URINALYSIS, COMPLETE, CULTURE, URINE, ROUTINE - Urinalysis bilirubin, urine NEGATIVE NEGATIVE Lab Report: CD4/CD8 Ratio Profile, Comp. Metabolic Panel (14), Lipid Garnett ... - Chemistry Absolute Neutrophils 3.7 X10E3/UL 10*3/uL 1.4-7.0 Lab Report: LIPID PANEL, STANDARD, COMPREHENSIVE METABOLIC PANEL, LYMPHO ... - Chemistry LDL cholesterol, serum 109 MG/DL (CALC) mg/dL albumin/globulin ratio, serum 1.8 (calc) 1.0-2.5 Absolute Monocyte count 357 {Cells}/uL 402-827 7660/11/15 cholesterol, serum 171 mg/dL <200 Lab Report: URINALYSIS, COMPLETE, CULTURE, URINE, ROUTINE - Urinalysis appearance, urine CLOUDY CLEAR Lab Report: CHLAMYDIA/N. GONORRHOEAE RNA, TMA - Lab chlamydia DNA probe NOT DETECTED NOT DETECTED Lab Report: LIPID PANEL, STANDARD, COMPREHENSIVE METABOLIC PANEL, LYMPHO ... - Chemistry aspartate aminotransferase (SGOT), serum 22 U/L 10-40 Lab Report: LIPID PANEL, STANDARD, COMPREHENSIVE METABOLIC PANEL, LYMPHO ... - Hematology red blood cell distribution width 12.9 % 11.0-15.0 Lab Report: LIPID PANEL, STANDARD, COMPREHENSIVE METABOLIC PANEL, LYMPHO ... - Chemistry globulins, serum, total 2.5 G/DL (CALC) g/dL 1.9-3.7 Lab Report: CD4/CD8 Ratio Profile, Comp. Metabolic Panel (14), Lipid Garnett ... - Chemistry immature granulocytes, percentage of total cells, blood 0 % Not Estab. Lab Report: LIPID PANEL, STANDARD, COMPREHENSIVE METABOLIC PANEL, LYMPHO ... - Hematology hematocrit, blood 49.0 % 38.5-50.0 basophils as percent of blood leukocytes 0.4 % Lab Report: URINALYSIS, COMPLETE, CULTURE, URINE, ROUTINE - Microbiology squamous epithelial cells NONE SEEN /HPF /[LPF] < OR=5 Lab Report: LIPID PANEL, STANDARD, COMPREHENSIVE METABOLIC PANEL, LYMPHO ... - Chemistry CD4/CD8 ratio 0.25 0.86-5.00 carbon dioxide, venous blood 30 mmol/L 20-32 alanine aminotransferase (SGPT), serum 25 U/L 9-46 Lab Report: LIPID PANEL, STANDARD, COMPREHENSIVE METABOLIC PANEL, LYMPHO ... - Hematology mean corpuscular hemoglobin, RBC 32.1 pg 27.0-33.0 hemoglobin, blood 16.8 g/dL 13.2-17.1 T-suppressor cells (CD8) as percent of blood lymphocytes 51 % 12-42 Lab Report: URINALYSIS, COMPLETE, CULTURE, URINE, ROUTINE - Urinalysis glucose, urine, semiquantitative NEGATIVE NEGATIVE Lab Report: LIPID PANEL, STANDARD, COMPREHENSIVE METABOLIC PANEL, LYMPHO ... - Hematology basophil count, absolute 19 cells/uL 0-200 Lab Report: LIPID PANEL, COMPREHENSIVE METABOLIC PANEL, LYMPHOCYTE SUBSE ... - Lab Hepatitis C Antibody, Signal to Cut-Off 0.14 <1.00 Lab Report: LIPID PANEL, STANDARD, COMPREHENSIVE METABOLIC PANEL, LYMPHO ... - Chemistry lymphocytes, absolute 1377 CELLS/UL 10*3/uL 850-3900 Lab Report: Testosterone,Free and Total, PSA, Serum (Serial Monitor), He ... - Chemistry testosterone, serum, free 7.0 pg/mL 6.8-21.5 Lab Report: CD4/CD8 Ratio Profile, Comp. Metabolic Panel (14), Lipid Garnett ... - Hematology eosinophils as percent of blood leukocytes 1 % Not Estab. Lab Report: LIPID PANEL, STANDARD, COMPREHENSIVE METABOLIC PANEL, LYMPHO ... - Chemistry blood glucose, random 94 mg/dL 65-99 Lab Report: LIPID PANEL, STANDARD, COMPREHENSIVE METABOLIC PANEL, LYMPHO ... - Hematology T-helper cells (CD4) count 179 CELLS/UL uL 490-1740 platelet count 189 THOUSAND/UL 10*3/mm3 140-400 Lab Report: URINALYSIS, COMPLETE, CULTURE, URINE, ROUTINE - Urinalysis ketones, urine, by test strip NEGATIVE NEGATIVE Encounters Date Encounter Provider Code Facility 05:53:27 SEO ENGINEER Ofc Vst, Est Level IV Crystal Torres [facility] CPT-90091 [facility] Adult Medicine 09:18:37 CDT Ofc Vst, Est Level IV Crystal Torres [facility] CPT-34131 [facility] Adult Medicine 10:41:43 CDT Ofc Vst, Est Level IV Crystal Torres [facility] CPT-07832 [facility] Adult Medicine 18:02:58 CDT Est Patient Exp Problem - 02804 Mary Mi MD CPT-03734 [facility] Adult Medicine 18:56:59 SEO ENGINEER Est Patient Exp Problem - 77974 Mary Mi MD CPT-72366 [facility] Adult Medicine 21:23:58 CDT Est Patient Exp Problem - 77718 Mary Mi MD CPT-35552 [facility] Adult Medicine 22:08:57 SEO ENGINEER Est Patient Exp Problem - 75598 Mary Mi MD CPT-16955 [facility] Adult Medicine 22:50:24 CDT Est Patient Exp Problem - 50917 Mary Mi MD CPT-63888 [facility] Adult Medicine 09:49:15 CDT Est Patient Exp Problem - 21194 Hero Zarco TECHNOLOGY ADMINISTRATOR CPT-78447 [facility] Adult Medicine 19:40:40 CDT Est Patient Exp Problem - 98337 Mary Mi MD CPT-65716 [facility] Adult Medicine 18:49:53 SEO ENGINEER Est Patient Exp Problem - 27274 Mary Mi MD CPT-00799 [facility] Adult Medicine 18:28:30 CDT Est Patient Exp Problem - 70980 Mary Mi MD CPT-16348 [facility] Adult Medicine 10:05:42 CDT Est Patient Detailed - 55834 Hero Zarco TECHNOLOGY ADMINISTRATOR CPT-07214 [facility] Adult Medicine 18:45:58 CDT Est Patient Exp Problem - 18944 Mary Mi MD CPT-21332 [facility] Adult Medicine 14:48:55 CDT Est Patient Exp Problem - 48098 Robert Betancourt [facility] CPT-65683 [facility] Adult Medicine 13:10:23 CDT Est Patient Problem Focus - 58679 Ana Maria Devries MD CPT-71397 [facility] Adult Medicine 13:03:00 SEO ENGINEER Est Patient Exp Problem - 58756 Shona Epperson CPT-90460 [facility] Adult [facility] Procedures Code Procedure Name Date Entry Date Standard Description CPT-23446 INFLUENZA VACCINE QUADRIVALENT 3 YRS PLUS IM 16:40:26 SEO ENGINEER CPT-51741 TDAP 17:03:09 CDT CPT-89569 Pneumovax Vaccine PPSV23 17:03:09 CDT CPT-32847 Prevnar (PCV13) IM 10:20:48 CDT CPT-14378 INFLUENZA VACCINE QUADRIVALENT 3 YRS PLUS IM 18:56:59 SEO ENGINEER CPT-J3301 Injection, triamcinolone acetonide, (Kenalog) 10 mg 21:23:57 CDT CPT-19553 Xray - Chest - PA & Lat - InHouse 10:53:13 CDT CPT-60254 Xray - Shoulder - InHouse 10:54:08 CDT CPT-32637 Handling of specimen for transfer 14:38:25 CDT CPT-87520 Venipuncture 14:38:25 CDT
[2018-05-09 11:24] VITALS: BP 156/98
== END 2018-05-09 11:25 | disposition home or self-care (01) ==
LOC: ER 09:28
DX: R07.89 Other chest pain (principal); S29.011A Strain of muscle and tendon of front wall of thorax, initial encounter; Y99.0 Civilian activity done for income or pay; I10 Essential (primary) hypertension; K21.9 Gastro-esophageal reflux disease without esophagitis; B20 Human immunodeficiency virus [HIV] disease
CPT/HCPCS: 93005; 99283

== ENCOUNTER → 2020-05-15 | Outpatient (CLI) | payer OTHER ==
[~2020-05-15] MED LIST: COVID-19 VACC, MRNA(MODERNA)/PF 100 MCG/0.5 ML VIAL IM ONE
== END | disposition home or self-care (01) ==
LOC: VACCPMC 19:00
DX: Z23 Encounter for immunization (principal); Z20.822 Contact with and (suspected) exposure to COVID-19

== ENCOUNTER → 2020-06-18 | Outpatient (CLI) | payer OTHER | END | DRG 951 | LOC: VACCPMC 07:32 | DX: Z23 Encounter for immunization (principal); Z20.822 Contact with and (suspected) exposure to COVID-19 | CPT/HCPCS: 0012A; 91301 ==

== ENCOUNTER 2022-05-24 22:44 | Emergency (ER) | payer SELFPAY ==
[~2022-05-24] VITALS: Ht 170.2 cm; Wt 90.7 kg
[2022-05-24] MEDS ORDERED: DOXYCYCLINE HY100 MG PO (22:57)
== END 2022-05-24 23:05 | disposition home or self-care (01) ==
LOC: ER 22:50
DX: L73.9 Follicular disorder, unspecified (principal); I10 Essential (primary) hypertension; E78.5 Hyperlipidemia, unspecified; B20 Human immunodeficiency virus [HIV] disease; K21.9 Gastro-esophageal reflux disease without esophagitis
CPT/HCPCS: 99283